=== PATIENT | male | born 1975 | race Caucasian/White ===

== ENCOUNTER → 2018-01-11 | Outpatient (CLI) | payer OTHER ==
[~2018-01-11] MED LIST: AMOX500 PO; HYDACE5 PO; METPRE4DP PO
== END | disposition home or self-care (01) ==
LOC: LAB SHORT 07:24 → LAB EV 07:24
DX: D04.62 Carcinoma in situ of skin of left upper limb, including shoulder (principal)
CPT/HCPCS: 88305

== ENCOUNTER → 2018-01-14 | Outpatient (CLI) | payer OTHER | END | disposition home or self-care (01) | LOC: LAB 08:30 → LAB SHORT 08:30 | DX: R10.9 Unspecified abdominal pain (principal) | CPT/HCPCS: 87338 ==